=== PATIENT | male | born 1980 | race Caucasian/White ===

== ENCOUNTER 2016-10-07 12:08 | Emergency (ER) | payer SELFPAY ==
[~2016-10-07] VITALS: Ht 180.3 cm; Wt 77.1 kg
[~2016-10-07 12:08] MED LIST: ALPR0.25 PO; DOCU-27 PO; FENT1PAT19 TD; NAPR250T2 PO; OXYC-250 PO; OXYC-323 PO; OXYC20TA34 PO; XANAX PO
[2016-10-07 12:53] LABS: BASO # 0.1 x10^3/uL (0.0-0.2); BASO % 1 % (0-3); EOS % 0 % (0-3); HEMATOCRIT 39.5 % (39.0-53.0); HEMOGLOBIN 13.5 g/dL (13.0-17.5); LYMPH # 1.3 x10^3/uL (1.0-4.8); LYMPH % 18 % (24-48); MEAN CORPUSCULAR HEMOGLOBIN 33 pg (25-35); MEAN CORPUSCULAR HGB CONC 34 g/dL (31-37); MEAN CORPUSCULAR VOLUME 98 fL (79-100); MONO % 10 % (0-9); NEUT % 71 % (31-73); PLATELET COUNT 261 x10^3/uL (140-400); RED BLOOD COUNT 4.04 x10^6/uL (4.30-5.70); RED CELL DISTRIBUTION WIDTH 14.3 % (11.5-14.5); WHITE BLOOD COUNT 7.3 x10^3/uL (4.0-11.0)
--- NOTE | 2016-10-07 12:54 | EKG ---
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
[2016-10-07 13:06] LABS: CALCIUM 8.7 mg/dL (8.5-10.1); CREATININE 1.1 mg/dL (0.7-1.3); GFR 77.1; POTASSIUM 3.4 mmol/L (3.5-5.1)
[2016-10-07 13:12] LABS: ALBUMIN 3.5 g/dL (3.4-5.0); TOTAL BILIRUBIN 0.3 mg/dL (0.2-1.0); TOTAL PROTEIN 7.1 g/dL (6.4-8.2)
[2016-10-07] MEDS ORDERED: ONDANSETRON PF 4 MG/2 ML VIAL. IV ONE (13:15)
--- NOTE | 2016-10-07 13:15 | PHYS DOC ---
Past Medical History Past Medical History: Alcoholism, Anxiety, Asthma, Depression Additional Past Medical Histor: cirrhosis Past Surgical History: Other Additional Past Surgical Histo: adenoids, teeth extraction Alcohol Use: Heavy Drug Use: None Adult General Chief Complaint Chief Complaint: etoh withdrawal HPI HPI Patient is a 35 year old male who presents with tremors, nausea and vomiting. He's also complaining of left-sided chest pain. Patient has history of alcohol abuse, is currently in the [place] program and was prescribed Ativan but he was not able to take Ativan because the nurse was not there to give the medications. He did a shot of alcohol just prior to arrival for his symptoms. His last drink before that was 2 days ago. He's had some nausea and vomiting, denies any fevers, no abdominal pain. He has left-sided chest pain that radiates to his back, worsens with deep inspiration and twisting. He denies any cough or shortness of breath. Review of Systems Review of Systems Constitutional: Denies fever or chills [] Eyes: Denies change in visual acuity, redness, or eye pain [] HENT: Denies nasal congestion or sore throat [] Respiratory: Denies cough or shortness of breath [] Cardiovascular: No additional information not addressed in HPI [] GI: Denies abdominal pain, bloody stools or diarrhea [] : Denies dysuria or hematuria [] Musculoskeletal: Denies back pain or joint pain [] Integument: Denies rash or skin lesions [] Neurologic: Denies headache, focal weakness or sensory changes [] Current Medications Current Medications Current Medications Medications (Trade) Dose Ordered Sig/[facility] Start Time Stop Time Status Last Admin Dose Admin Diazepam (Valium) 5 mg 1X ONCE 10/07/16 13:30 10/07/16 13:31 DC 10/07/16 13:01 5 MG Multivitamins 10 ml/Folic Acid 1 mg/Thiamine HCl 100 mg/Sodium Chloride 1,011.2 ml @ 1,000 mls/ hr 1X ONCE 10/07/16 13:30 10/07/16 14:30 10/07/16 13:01 1,000 MLS/HR Ondansetron HCl (Zofran) 4 mg 1X ONCE 10/07/16 13:15 10/07/16 13:16 DC 10/07/16 13:18 4 MG Allergies Allergies Allergies Coded Allergies Type Severity Reaction Last Updated Verified bupropion HCl Allergy Intermediate 08/11/14 Yes prochlorperazine edisylate Allergy Intermediate 08/11/14 Yes prochlorperazine maleate Allergy Intermediate 08/11/14 Yes Physical Exam Physical Exam Constitutional: Well developed, well nourished, no acute distress, non-toxic appearance. [] HENT: Normocephalic, atraumatic, bilateral external ears normal, oropharynx moist, no oral exudates, nose normal. [] Eyes: PERRLA, EOMI, conjunctiva normal, no discharge. [] Neck: Normal range of motion, no tenderness, supple, no stridor. [] Cardiovascular:Heart rate regular with regular rhythm, no murmur [] Lungs & Thorax: Bilateral breath sounds clear to auscultation, no w/c/r, ttp along left lateral chest Abdomen: Bowel sounds normal, soft, no tenderness, no masses, no pulsatile masses. [] Skin: Warm, dry, no erythema, no rash. [] Back: No tenderness, no CVA tenderness. [] Extremities: No tenderness, no cyanosis, no clubbing, baseline tremor noted Neurologic: Alert and oriented X 3, normal motor function, normal sensory function, no focal deficits noted. [] Psychologic: Affect normal, judgement normal, mood normal. [] Current Patient Data Vital Signs Vital Signs Date Time Temp Pulse Resp B/P (MAP) Pulse Ox O2 Delivery O2 Flow Rate FiO2 10/07/16 12:26 99.1 87 26 157/98 (117) 96 Room Air 99.1 Lab Values Laboratory Tests Test 10/07/16 12:41 White Blood Count 7.3 x10^3/uL (4.0-11.0) Red Blood Count 4.04 x10^6/uL (4.30-5.70) L Hemoglobin 13.5 g/dL (13.0-17.5) Hematocrit 39.5 % (39.0-53.0) Mean Corpuscular Volume 98 fL (79-100) Mean Corpuscular Hemoglobin 33 pg (25-35) Mean Corpuscular Hemoglobin Concent 34 g/dL (31-37) Red Cell Distribution Width 14.3 % (11.5-14.5) Platelet Count 261 x10^3/uL (140-400) Neutrophils (%) (Auto) 71 % (31-73) Lymphocytes (%) (Auto) 18 % (24-48) L Monocytes (%) (Auto) 10 % (0-9) H Eosinophils (%) (Auto) 0 % (0-3) Basophils (%) (Auto) 1 % (0-3) Neutrophils # (Auto) 5.2 x10^3uL (1.8-7.7) Lymphocytes # (Auto) 1.3 x10^3/uL (1.0-4.8) Monocytes # (Auto) 0.7 x10^3/uL (0.0-1.1) Eosinophils # (Auto) 0.0 x10^3/uL (0.0-0.7) Basophils # (Auto) 0.1 x10^3/uL (0.0-0.2) Sodium Level 140 mmol/L (136-145) Potassium Level 3.4 mmol/L (3.5-5.1) L Chloride Level 102 mmol/L (98-107) Carbon Dioxide Level 25 mmol/L (21-32) Anion Gap 13 (6-14) Blood Urea Nitrogen 8 mg/dL (8-26) Creatinine 1.1 mg/dL (0.7-1.3) Estimated GFR (Cockcroft-Gault) 77.1 BUN/Creatinine Ratio 7 (6-20) Glucose Level 167 mg/dL (70-99) H Calcium Level 8.7 mg/dL (8.5-10.1) Total Bilirubin 0.3 mg/dL (0.2-1.0) Aspartate Amino Transferase (AST) 27 U/L (15-37) Alanine Aminotransferase (ALT) 33 U/L (16-63) Alkaline Phosphatase 67 U/L (46-116) Total Protein 7.1 g/dL (6.4-8.2) Albumin 3.5 g/dL (3.4-5.0) Albumin/Globulin Ratio 1.0 (1.0-1.7) Laboratory Tests 10/07/16 12:41 Laboratory Tests 10/07/16 12:41 EKG EKG 85 bpm, sinus, normal axis, normal intervals, no ST elevation or depression, nonischemic T waves [] Radiology/Procedures Radiology/Procedures CXR: Portable chest, 10/07/2016: History: Left-sided chest pain Comparison is made to a study from 05/04/2016. The heart size and pulmonary vascularity are normal. No pulmonary infiltrates are seen. There is no evidence of pleural fluid. There is deformity of the left first and second ribs due to old fractures. IMPRESSION: No acute cardiopulmonary abnormality is detected. Course & Med Decision Making Course & Med Decision Making Pertinent Labs and Imaging studies reviewed. (See chart for details) Patient was given banana bag and Valium IV. Chest x-ray, lab work obtained. VSS, no acute findings on ED workup. Pt ate a meal without difficulty. He is accepted back to [facility] program, given RX for valium for his withdrawal symptoms. Return precautions given. Dragon Disclaimer Contactually Disclaimer This electronic medical record was generated, in whole or in part, using a voice recognition dictation system. Departure Departure Impression: Primary Impression: Alcohol withdrawal Disposition: 65 XFER TO PSYCH HOSP/UNIT Condition: STABLE Referrals: ISAEL GARCIA MD (PCP) Scripts Naltrexone Hcl (NALTREXONE HCL) 50 Mg Tablet 1 TAB PO DAILY, #10 TAB 0 Refills Do not take opioids while taking this medication Prov: IZABEL MARQUEZ MD 10/07/16 Diazepam (VALIUM) 5 Mg Tablet 5 MG PO TID Y for alcohol withdrawal symptoms., #[address] operate machinery while taking. Prov: IZABEL MARQUEZ MD 10/07/16 IZABEL MARQUEZ MD October 07, 2016 13:15
[2016-10-07] MEDS ORDERED: MULTIVIT INFUSN,ADULT 4,VIT K 10 ML, FOLIC ACID 1 MG, THIAMINE 100 MG in IV NORMAL SALI... IV ONE (13:30)
--- NOTE | 2016-10-07 13:38 | RAD ---
Portable chest, 10/07/2016: History: Left-sided chest pain Comparison is made to a study from 05/04/2016. The heart size and pulmonary vascularity are normal. No pulmonary infiltrates are seen. There is no evidence of pleural fluid. There is deformity of the left first and second ribs due to old fractures. IMPRESSION: No acute cardiopulmonary abnormality is detected.
[2016-10-07 13:51] VITALS: BP 150/100
[2016-10-07] MEDS ORDERED: DIAZ5TAB PO (13:52)
[2016-10-07] MEDS ORDERED: NALT50TA PO (14:15)
== END 2016-10-07 14:31 ==
LOC: ER 12:08
DX: F10.239 Alcohol dependence with withdrawal, unspecified (principal); R25.1 Tremor, unspecified; R11.2 Nausea with vomiting, unspecified; R07.89 Other chest pain; J45.909 Unspecified asthma, uncomplicated; Z88.8 Allergy status to other drugs, medicaments and biological substances
CPT/HCPCS: 36415; 71010; 80053; 85027; 93005; 96365; 96375; 99285; J2405; J3360; J7030

== ENCOUNTER 2019-09-19 15:46 | Emergency (ER) | payer SELFPAY ==
[~2019-09-19] VITALS: Ht 180.3 cm; Wt 81.8 kg
[~2019-09-19 15:46] MED LIST changes: +DIAZ5TAB PO; +DOCU-109 PO; -DOCU-27 PO; +NALT50TA PO; -NAPR250T2 PO; +NAPR250T6 PO; -OXYC-250 PO; -OXYC-323 PO; +OXYC1TAB15 PO; +OXYC1TAB22 PO
[2019-09-19 16:27] LABS: BASO # 0.1 x10^3/uL (0.0-0.2); BASO % 1 % (0-3); EOS # 0.1 x10^3/uL (0.0-0.7); EOS % 2 % (0-3); HEMATOCRIT 44.6 % (39.0-53.0); LYMPH # 1.4 x10^3/uL (1.0-4.8); LYMPH % 24 % (24-48); MEAN CORPUSCULAR HEMOGLOBIN 30 pg (25-35); MEAN CORPUSCULAR HGB CONC 34 g/dL (31-37); MEAN CORPUSCULAR VOLUME 90 fL (79-100); MONO # 0.7 x10^3/uL (0.0-1.1); MONO % 11 % (0-9); NEUT # 3.7 x10^3/uL (1.8-7.7); NEUT % 62 % (31-73); PLATELET COUNT 193 x10^3/uL (140-400); RED BLOOD COUNT 4.96 x10^6/uL (4.30-5.70); RED CELL DISTRIBUTION WIDTH 14.2 % (11.5-14.5)
[2019-09-19] MEDS ORDERED: IV NORMAL SALINE 1000ML BAG 1,000 ML IV ONE (16:30)
[2019-09-19] MEDS ORDERED: MORPHINE SULFATE 4 MG/ML VIAL. IV ONE (16:30)
[2019-09-19] MEDS ORDERED: ONDANSETRON PF 4 MG/2 ML VIAL. IV ONE (16:30)
[2019-09-19 16:36] LABS: CALCIUM 8.7 mg/dL (8.5-10.1); GFR 84.5; POTASSIUM 4.6 mmol/L (3.5-5.1)
[2019-09-19 16:42] LABS: ALBUMIN 3.6 g/dL (3.4-5.0); MAGNESIUM 1.8 mg/dL (1.8-2.4); TOTAL BILIRUBIN 0.2 mg/dL (0.2-1.0); TOTAL PROTEIN 7.1 g/dL (6.4-8.2)
[2019-09-19] MEDS ORDERED: IOHEXOL 300 MG/ML 100ML VIAL. IV ONE (17:15)
[2019-09-19 17:24] LABS: BILIRUBIN,URINE NEGATIVE (NEG); CLARITY,URINE CLEAR; COLOR,URINE YELLOW; NITRITE,URINE NEGATIVE (NEG); PROTEIN,URINE NEGATIVE (NEG-TRACE); UROBILINOGEN,URINE 0.2 mg/dL (0.2 mg/dL)
[2019-09-19 17:28] LABS: BACTERIA,URINE 0 /HPF (0-FEW); RBC,URINE 0 /HPF (0-2); WBC,URINE 0 /HPF (0-4)
[2019-09-19 17:30] LABS: BARBITURATES NEG (NEG); BENZODIAZEPINES NEG (NEG); CANNABINOIDS NEG (NEG); COCAINE NEG (NEG); METHADONE NEG (NEG); OPIATES NEG (NEG); PHENCYCLIDINE NEG (NEG)
[2019-09-19] MEDS ORDERED: CONTRAST GIVEN. MC PRN (17:30)
--- NOTE | 2019-09-19 17:31 | RAD ---
Exam: CT maxillofacial with contrast INDICATION: Facial abscess and swelling over forehead TECHNIQUE: Sequential axial images through the maxillofacial obtained following the administration of 70 mL of Omni 300 IV contrast. Sagittal and coronal reformatted images were reconstructed from the axial data and reviewed. Comparisons: None FINDINGS: Visualized intracranial structures are unremarkable. Paranasal sinuses and mastoid air cells are well-pneumatized. Globes and orbital contents are normal. No acute fractures. There is mild soft tissue swelling in the soft tissues overlying the forehead. No focal fluid collection. IMPRESSION: Mild soft tissue swelling overlying the forehead without underlying focal fluid collection. Exposure: One or more of the following in the visualized dose reduction techniques were utilized for this examination: 1. Automated exposure control 2. Adjustment of the MA and/or KV according to patient size 3. Use of iterative of reconstructive technique Electronically signed by: Juan Sotelo MD (09/19/2019 5:28 PM) [id number]
[2019-09-19 17:40] LABS: AMPHETAMINE/METHAMPHETAMINE NEG (NEG)
[2019-09-19] MEDS ORDERED: CLINDAMYCIN 600MG PREMIX 50 ML IV ONE (17:45)
[2019-09-19] MEDS ORDERED: CLIN150C14 PO (18:01)
--- NOTE | 2019-09-19 18:01 | PHYS DOC ---
Past Medical History Past Medical History: Alcoholism, Anxiety, Asthma, Depression Additional Past Medical Histor: cirrhosis Past Surgical History: Other Additional Past Surgical Histo: adenoids, teeth extraction Smoking Status: Current Every Day Smoker Alcohol Use: Sober Drug Use: None General Adult EDM: Chief Complaint: ABSCESS HPI: HPI: Patient is a 38 year old [f__sex] who presents with [] Review of Systems: Review of Systems: Constitutional: Denies fever or chills. [] Eyes: Denies change in visual acuity. [] HENT: Denies nasal congestion or sore throat. [] Respiratory: Denies cough or shortness of breath. [] Cardiovascular: Denies chest pain or edema. [] GI: Denies abdominal pain, nausea, vomiting, bloody stools or diarrhea. [] : Denies dysuria. [] Musculoskeletal: Denies back pain or joint pain. [] Integument: Denies rash. [] Neurologic: Denies headache, focal weakness or sensory changes. [] Endocrine: Denies polyuria or polydipsia. [] Lymphatic: Denies swollen glands. [] Psychiatric: Denies depression or anxiety. [] Heart Score: Risk Factors: Risk Factors: DM, Current or recent (<one month) smoker, HTN, HLP, family history of CAD, obesity. Risk Scores: Score 0 - 3: 2.5% MACE over next 6 weeks - Discharge Home Score 4 - 6: 20.3% MACE over next 6 weeks - Admit for Clinical Observation Score 7 - 10: 72.7% MACE over next 6 weeks - Early Invasive Strategies Current Medications: Current Medications Medications (Trade) Dose Ordered Sig/[place] Start Time Stop Time Status Last Admin Dose Admin Clindamycin Phosphate 50 ml @ 100 mls/hr 1X ONCE 09/19/19 17:45 09/19/19 18:14 09/19/19 17:45 100 MLS/HR Info (CONTRAST GIVEN -- Rx MONITORING) 1 each PRN DAILY PRN 09/19/19 17:30 09/21/19 17:29 Iohexol (Omnipaque 300 Mg/ml) 70 ml 1X ONCE 09/19/19 17:15 09/19/19 17:16 DC 09/19/19 17:19 70 ML Morphine Sulfate (Morphine Sulfate) 4 mg 1X ONCE 09/19/19 16:30 09/19/19 16:31 DC 09/19/19 16:28 4 MG Ondansetron HCl (Zofran) 4 mg 1X ONCE 09/19/19 16:30 09/19/19 16:31 DC 09/19/19 16:28 4 MG Sodium Chloride 1,000 ml @ 1,000 mls/hr 1X ONCE 09/19/19 16:30 09/19/19 17:29 DC 09/19/19 16:28 1,000 MLS/HR Allergies: Allergies: Allergies Coded Allergies Type Severity Reaction Last Updated Verified bupropion HCl Allergy Intermediate 08/11/14 Yes prochlorperazine edisylate Allergy Intermediate 08/11/14 Yes prochlorperazine maleate Allergy Intermediate 08/11/14 Yes Physical Exam: PE: Constitutional: Well developed, well nourished, no acute distress, non-toxic appearance. [] HENT: Normocephalic, atraumatic, bilateral external ears normal, oropharynx moist, no oral exudates, nose normal. [] Eyes: PERRLA, EOMI, conjunctiva normal, no discharge. [] Neck: Normal range of motion, no tenderness, supple, no stridor. [] Cardiovascular:Heart rate regular rhythm, no murmur [] Lungs & Thorax: Bilateral breath sounds clear to auscultation [] Abdomen: Bowel sounds normal, soft, no tenderness, no masses, no pulsatile masses. [] Skin: Warm, dry, no erythema, no rash. [] Back: No tenderness, no CVA tenderness. [] Extremities: No tenderness, no cyanosis, no clubbing, ROM intact, no edema. [] Neurologic: Alert and oriented X 3, normal motor function, normal sensory function, no focal deficits noted. [] Psychologic: Affect normal, judgement normal, mood normal. [] Current Patient Data: Labs: Laboratory Tests Test 09/19/19 16:15 09/19/19 17:17 White Blood Count 6.0 x10^3/uL (4.0-11.0) Red Blood Count 4.96 x10^6/uL (4.30-5.70) Hemoglobin 15.0 g/dL (13.0-17.5) Hematocrit 44.6 % (39.0-53.0) Mean Corpuscular Volume 90 fL (79-100) Mean Corpuscular Hemoglobin 30 pg (25-35) Mean Corpuscular Hemoglobin Concent 34 g/dL (31-37) Red Cell Distribution Width 14.2 % (11.5-14.5) Platelet Count 193 x10^3/uL (140-400) Neutrophils (%) (Auto) 62 % (31-73) Lymphocytes (%) (Auto) 24 % (24-48) Monocytes (%) (Auto) 11 % (0-9) H Eosinophils (%) (Auto) 2 % (0-3) Basophils (%) (Auto) 1 % (0-3) Neutrophils # (Auto) 3.7 x10^3/uL (1.8-7.7) Lymphocytes # (Auto) 1.4 x10^3/uL (1.0-4.8) Monocytes # (Auto) 0.7 x10^3/uL (0.0-1.1) Eosinophils # (Auto) 0.1 x10^3/uL (0.0-0.7) Basophils # (Auto) 0.1 x10^3/uL (0.0-0.2) Sodium Level 144 mmol/L (136-145) Potassium Level 4.6 mmol/L (3.5-5.1) Chloride Level 105 mmol/L (98-107) Carbon Dioxide Level 30 mmol/L (21-32) Anion Gap 9 (6-14) Blood Urea Nitrogen 15 mg/dL (8-26) Creatinine 1.0 mg/dL (0.7-1.3) Estimated GFR (Cockcroft-Gault) 84.5 BUN/Creatinine Ratio 15 (6-20) Glucose Level 97 mg/dL (70-99) Lactic Acid Level 0.8 mmol/L (0.4-2.0) Calcium Level 8.7 mg/dL (8.5-10.1) Magnesium Level 1.8 mg/dL (1.8-2.4) Total Bilirubin 0.2 mg/dL (0.2-1.0) Aspartate Amino Transferase (AST) 19 U/L (15-37) Alanine Aminotransferase (ALT) 24 U/L (16-63) Alkaline Phosphatase 60 U/L (46-116) Total Protein 7.1 g/dL (6.4-8.2) Albumin 3.6 g/dL (3.4-5.0) Albumin/Globulin Ratio 1.0 (1.0-1.7) Urine Collection Type Unknown Urine Color Yellow Urine Clarity Clear Urine pH 7.0 (<5.0-8.0) Urine Specific [place] 1.010 (1.000-1.030) Urine Protein Negative mg/dL (NEG-TRACE) Urine Glucose (UA) Negative mg/dL (NEG) Urine Ketones (Stick) Negative mg/dL (NEG) Urine Blood Negative (NEG) Urine Nitrite Negative (NEG) Urine Bilirubin Negative (NEG) Urine Urobilinogen Dipstick 0.2 mg/dL (0.2 mg/dL) Urine Leukocyte Esterase Negative (NEG) Urine RBC 0 /HPF (0-2) Urine WBC 0 /HPF (0-4) Urine Bacteria 0 /HPF (0-FEW) Urine Opiates Screen Neg (NEG) Urine Methadone Screen Neg (NEG) Urine Barbiturates Neg (NEG) Urine Phencyclidine Screen Neg (NEG) Urine Amphetamine/Methamphetamine Neg (NEG) Urine Benzodiazepines Screen Neg (NEG) Urine Cocaine Screen Neg (NEG) Urine Cannabinoids Screen Neg (NEG) Urine Ethyl Alcohol Neg (NEG) Laboratory Tests 09/19/19 16:15 Laboratory Tests 09/19/19 16:15 Vital Signs: Vital Signs Date Time Temp Pulse Resp B/P (MAP) Pulse Ox O2 Delivery O2 Flow Rate FiO2 09/19/19 17:32 74 20 121/72 (88) 94 Room Air 09/19/19 16:05 98.7 98.7 EKG: EKG: [] Radiology/Procedures: Radiology/Procedures: [] Course & Med Decision Making: Course & Med Decision Making Pertinent Labs and Imaging studies reviewed. (See chart for details) [] Dragon Disclaimer: Dragon Disclaimer: This electronic medical record was generated, in whole or in part, using a voice recognition dictation system. Departure Departure Impression: Primary Impression: Cellulitis and abscess of face Disposition: 01 HOME, SELF-CARE Condition: STABLE Referrals: ISAEL GARCIA MD (PCP) Patient Instructions: Abscess, [id number], Cellulitis, [id number] Additional Instructions: Fill the prescription(s) and use as directed. You may take tylenol or ibuprofen as needed for pain. You may apply warm, moist packs to the area to help decrease discomfort. Follow up with your primary care doctor or return to the ER in 48 hours to have wound rechecked. Return to the ER sooner if your symptoms worsen. Scripts Clindamycin Hcl (CLINDAMYCIN HCL) 150 Mg Capsule 450 MG PO TID for 7 Days, #63 CAP 0 Refills Prov: LIBBY DOE APRN 09/19/19 LIBBY DOE APRN Sep 19, 2019 18:01
[2019-09-19 18:02] VITALS: BP 127/62
[2019-09-19] MEDS ORDERED: HYDROcodone/APAP 5/325MG 1 TAB TABLET PO ONE (18:30)
== END 2019-09-19 18:33 | disposition home or self-care (01) ==
LOC: ER 15:46
DX: L02.01 Cutaneous abscess of face (principal); L03.211 Cellulitis of face; F41.9 Anxiety disorder, unspecified; J45.909 Unspecified asthma, uncomplicated; F32.9 Major depressive disorder, single episode, unspecified; F17.200 Nicotine dependence, unspecified, uncomplicated; Z98.890 Other specified postprocedural states; Z88.1 Allergy status to other antibiotic agents; Z88.8 Allergy status to other drugs, medicaments and biological substances
CPT/HCPCS: 36415; 70487; 80053; 80307; 81001; 83605; 83735; 85025; 87040; 96365; 96375; 99285; J2270; J2405; J3490; J7030; Q9967